=== PATIENT | male | born 1980 | race Caucasian/White ===

== ENCOUNTER 2016-12-27 11:12 | Emergency (ER) | payer OTHER ==
[~2016-12-27] VITALS: Ht 172.7 cm; Wt 65.0 kg
[~2016-12-27 11:12] MED LIST: NORCO; XANAX
[2016-12-27] MEDS ORDERED: SODIUM CHLORIDE 0.9% 1,000 ML IV ONE (11:42)
[2016-12-27 11:52] VITALS: BP 119/67
[2016-12-27 12:05] LABS: BASOPHILS % 0.7 % (0.0-2.0); EOSINOPHILS % 1.5 % (0.0-5.0); HEMOGLOBIN. 13.2 g/dL (14.0-18.0); LYMPHOCYTES % 39.1 % (20.0-50.0); MEAN CORPUSCULAR HEMOGLOBIN 32.1 pg (28.0-32.0); MEAN CORPUSCULAR HGB CONC 34.7 g/dL (31.0-37.0); MEAN CORPUSCULAR VOLUME 92.3 fL (80.0-94.0); MONOCYTES % 7.1 % (2.0-8.0); NEUTROPHILS % 51.6 % (40.0-76.0); PLATELET 188 x1000/uL (130-400); RED BLOOD CELL COUNT 4.12 mill/uL (4.7-6.1); RED CELL DISTRIBUTION WIDTH 13.8 % (11.6-14.6); WHITE BLOOD COUNT 5.3 x1000/uL (4.5-11.0)
[2016-12-27 12:17] LABS: ACETAMINOPHEN < 2 ug/mL (10-30); ANION GAP 11; CALCIUM 8.5 mg/dL (8.5-10.1); CARBON DIOXIDE 30 mEq/L (21-32); CHLORIDE 103 mEq/L (98-107); ETHANOL BLOOD < 10 mg/dL; INDEX HEMOLYSI 1 (1-3); INDEX ICTERIC 1 (1-4); INDEX LIPEMIC 1 (1-3); UREA NITROGEN BLOOD 12 mg/dL (7-21); eGFR > 60 mL/min (>60)
[2016-12-27 13:00] LABS: *AMPHETAMINES SCREEN URINE PRESUMTIVE POSITIVE (NEGATIVE); *BARBITURATES SCREEN URINE NEGATIVE (NEGATIVE); *BENZODIAZEPINES SCREEN URINE PRESUMTIVE POSITIVE (NEGATIVE); *COCAINE SCREEN URINE NEGATIVE (NEGATIVE); CANNABINOID URINE SCREEN NEGATIVE (NEGATIVE); ECSTASY MDMA SCREEN URINE CONF.TEST INDICATED (NEGATIVE); METHADONE URINE SCREEN PRESUMTIVE POSITIVE (NEGATIVE); OPIATES URINE SCREEN NEGATIVE (NEGATIVE); PHENCYCLIDINE URINE SCREEN NEGATIVE (NEGATIVE)
[2016-12-27] MEDS ORDERED: NALOXONE HCL 1 MG/ML 2ML VIAL IM ONE (13:45)
== END 2016-12-27 14:38 | disposition left against medical advice (07) ==
LOC: ER 11:28
DX: G92 Toxic encephalopathy (principal); T43.624A Poisoning by amphetamines, undetermined, initial encounter; T40.2X4A Poisoning by other opioids, undetermined, initial encounter; T42.4X4A Poisoning by benzodiazepines, undetermined, initial encounter; I10 Essential (primary) hypertension; F15.10 Other stimulant abuse, uncomplicated; F11.10 Opioid abuse, uncomplicated; F19.10 Other psychoactive substance abuse, uncomplicated; F41.9 Anxiety disorder, unspecified; K75.9 Inflammatory liver disease, unspecified; Z88.0 Allergy status to penicillin; Y92.89 Other specified places as the place of occurrence of the external cause
CPT/HCPCS: 36415; 80048; 80305; 80329; 85025; 96360; 96361; 96372; 99285; G0482; J2310; J7030; Z7610; 80307

== ENCOUNTER 2017-06-16 06:09 | Emergency (ER) | payer OTHER ==
[~2017-06-16] VITALS: Ht 190.5 cm; Wt 89.0 kg
[2017-06-16] MEDS ORDERED: KETOROLAC 60MG/2ML VIAL IM ONE (08:15)
[2017-06-16] MEDS ORDERED: FLUORESCEIN SODIUM 1MG/STRIP OP ONE (08:30)
[2017-06-16] MEDS ORDERED: BALANCED SALT IRRIG SOLN 15ML IO ONE (08:30)
[2017-06-16] MEDS ORDERED: TETRACAINE 0.5% OPHTH DROPS 4ML OP ONE (08:30)
[2017-06-16 11:12] VITALS: BP 120/82
== END 2017-06-16 11:37 | disposition left against medical advice (07) ==
LOC: ER 07:39
DX: S02.32XA Fracture of orbital floor, left side, initial encounter for closed fracture (principal); S00.12XA Contusion of left eyelid and periocular area, initial encounter; F41.9 Anxiety disorder, unspecified; F17.210 Nicotine dependence, cigarettes, uncomplicated; Z86.14 Personal history of Methicillin resistant Staphylococcus aureus infection; Z86.19 Personal history of other infectious and parasitic diseases; Z88.1 Allergy status to other antibiotic agents; Z88.2 Allergy status to sulfonamides; Y04.0XXA Assault by unarmed brawl or fight, initial encounter; Y93.89 Activity, other specified; Y92.22 Religious institution as the place of occurrence of the external cause
CPT/HCPCS: 70450; 70486; 96372; 99284; J1885; Z7610

== ENCOUNTER 2017-07-26 15:04 | Emergency (ER) | payer OTHER ==
[~2017-07-26] VITALS: Ht 175.3 cm; Wt 75.0 kg
[2017-07-26 15:05] VITALS: BP 124/86
== END 2017-07-26 19:22 | disposition left against medical advice (07) ==
LOC: ER 15:16
DX: R51 Headache (principal); Z53.21 Procedure and treatment not carried out due to patient leaving prior to being seen by health care provider

== ENCOUNTER 2017-07-30 11:14 | Emergency (ER) | payer OTHER ==
[~2017-07-30] VITALS: Ht 185.4 cm; Wt 75.0 kg
[2017-07-30] MEDS ORDERED: SODIUM CHLORIDE 0.9% 1,000 ML IV ONE (14:36)
[2017-07-30] MEDS ORDERED: KETOROLAC 30MG/ML VIAL IV STA (14:36)
[2017-07-30] MEDS ORDERED: METOCLOPRAMIDE HCL 10MG/2ML VIAL IV ONE (14:45)
[2017-07-30] MEDS ORDERED: LORAZEPAM 2MG/ML CPJ IV ONE (14:45)
[2017-07-30] MEDS ORDERED: BALANCED SALT IRRIG SOLN 15ML IO ONE (14:45)
[2017-07-30] MEDS ORDERED: FLUORESCEIN SODIUM 1MG/STRIP OP ONE (14:45)
[2017-07-30] MEDS ORDERED: TETRACAINE 0.5% OPHTH DROPS 4ML OP ONE (14:45)
[2017-07-30 17:03] VITALS: BP 136/82
== END 2017-07-30 17:19 | disposition home or self-care (01) ==
LOC: ER 11:14
DX: S02.40DA Maxillary fracture, left side, initial encounter for closed fracture (principal); F17.210 Nicotine dependence, cigarettes, uncomplicated; F41.9 Anxiety disorder, unspecified; Y08.89XA Assault by other specified means, initial encounter; Y93.89 Activity, other specified; Y92.89 Other specified places as the place of occurrence of the external cause; Z88.1 Allergy status to other antibiotic agents; Z88.2 Allergy status to sulfonamides; Z86.19 Personal history of other infectious and parasitic diseases; Z86.14 Personal history of Methicillin resistant Staphylococcus aureus infection
CPT/HCPCS: 70450; 70486; 96361; 96374; 96375; 99284; J1885; J2060; J2765; J7030

== ENCOUNTER 2017-08-05 20:52 | Emergency (ER) | payer OTHER ==
[~2017-08-05] VITALS: Ht 188 cm; Wt 95.0 kg
[2017-08-05 21:35] VITALS: BP 133/88
== END 2017-08-06 01:45 | disposition left against medical advice (07) ==
LOC: ER 22:00
DX: R07.89 Other chest pain (principal); Z53.21 Procedure and treatment not carried out due to patient leaving prior to being seen by health care provider
CPT/HCPCS: 93005

== ENCOUNTER 2017-08-10 17:36 | Emergency (ER) | payer OTHER ==
[~2017-08-10] VITALS: Ht 188 cm; Wt 80.0 kg
[2017-08-10] MEDS ORDERED: SODIUM CHLORIDE 0.9% 1,000 ML IV ONE (18:57)
[2017-08-10] MEDS ORDERED: LORAZEPAM 2MG/ML CPJ IV STA (18:57)
[2017-08-10 19:17] LABS: BASOPHILS % 1.1 % (0.0-2.0); EOSINOPHILS % 0.6 % (0.0-5.0); HEMATOCRIT. 42.3 % (42.0-52.0); HEMOGLOBIN. 15.1 g/dL (14.0-18.0); LYMPHOCYTES % 22.2 % (20.0-50.0); MEAN CORPUSCULAR HEMOGLOBIN 37.2 pg (28.0-32.0); MEAN CORPUSCULAR VOLUME 104.1 fL (80.0-94.0); MEAN PLATELET VOLUME 6.2 fl (7.4-10.4); MONOCYTES % 9.2 % (2.0-8.0); NEUTROPHILS % 66.9 % (40.0-76.0); PLATELET 231 x1000/uL (130-400); RED BLOOD CELL COUNT 4.07 mill/uL (4.7-6.1); RED CELL DISTRIBUTION WIDTH 15.5 % (11.6-14.6)
[2017-08-10 19:31] LABS: CARBON DIOXIDE 30 mEq/L (21-32); CHLORIDE 110 mEq/L (98-107)
[2017-08-10 21:00] VITALS: BP 105/65
== END 2017-08-10 20:59 | disposition home or self-care (01) ==
LOC: ER 17:36
DX: F10.20 Alcohol dependence, uncomplicated (principal); R53.1 Weakness; F17.200 Nicotine dependence, unspecified, uncomplicated; F11.10 Opioid abuse, uncomplicated; Z88.1 Allergy status to other antibiotic agents; Z88.2 Allergy status to sulfonamides
CPT/HCPCS: 36415; 80053; 83690; 85025; 96361; 96374; 99285; J2060; J7030